=== PATIENT | female | born 2000 | race Caucasian/White ===

== ENCOUNTER 2019-04-30 19:06 | Emergency (ER) | payer SELFPAY ==
[~2019-04-30] VITALS: Ht 157.5 cm; Wt 51.7 kg
[2019-04-30 19:15] VITALS: BP 114/81
--- NOTE | 2019-04-30 19:20 | NUR ---
PT AMBULATED TO BED 6 WITH STEADY GAIT. UA COLLECTED.
--- NOTE | 2019-04-30 19:30 | NUR ---
18 YRS OLD FEMALE C/O PAINFUL URINATION X5 DAYS AGO ACCOMPANIED BY BLEEDING AND FREQUENCY /10. PAIN RADIATES TO LOWER BACK. PT HAS BEEN NAUSEAOUS AND HAS BROWN DISCHARGE. BED IN LOW POSITION, SIDE RAIL UP X1. WILL CONTINUE TO MONITOR.
--- NOTE | 2019-04-30 19:31 | NUR ---
DR. ZEPEDA AT BEDSIDE EVALUATING PT.
[2019-04-30 19:55] VITALS: BP 114/81
--- NOTE | 2019-04-30 19:56 | NUR ---
Patient discharged with v/s stable. Written and verbal after care instructions given and explained. Patient alert, oriented and verbalized understanding of instructions. Ambulatory with steady gait. All questions addressed prior to discharge. ID band removed. Patient advised to follow up with PMD. Rx of PYRIDIUM AND MACROBID given. Patient educated on indication of medication including possible reaction and side effects. Opportunity to ask questions provided and answered.
== END 2019-04-30 19:56 | disposition home or self-care (01) ==
LOC: MED 19:06
DX: N39.0 Urinary tract infection, site not specified (principal)
CPT/HCPCS: 81002; 81025; 99283